=== PATIENT | female | born 1970 | race Caucasian/White ===

== ENCOUNTER 2020-12-14 10:15 | Emergency (ER) | payer OTHER, SELFPAY ==
[2020-12-14 10:22] VITALS: BP 193/121; PULSE 108; RESP 20; TEMP 36.9; O2SAT 99
--- NOTE | 2020-12-14 10:22 | ED.URI ---
HPI - URI/Sore Throat General Chief Complaint: Upper Respiratory Infection Stated Complaint: sore throat fever nausea Time Seen by Provider: 12/14/20 10:22 Source: patient and RN notes reviewed History of Present Illness HPI Narrative: Patient is a 50-year-old female who presents the urgent care with complaints of sore throat, nausea, vomiting, fever. Patient states that she is had symptoms since Monday and has now vomited once yesterday and today. Patient states that she has been taking TheraFlu and Pepto-Bismol for her symptoms. Denies any known exposure to strep, influenza or Covid. Patient also reports of intermittent headaches. States that she is supposed to be taking blood pressure medicine but her blood pressure has been normal and therefore she stopped taking her 2 medications, propranolol and lisinopril . Patient currently denies of any blurry vision or chest pain. No other acute complaints. No acute distress noted. Patient aware of the plan of care. Some parts of this dictation were generated by voice recognition software and may contain typographical and/or grammatical inaccuracies. Related Data Home Medications Medication Instructions Recorded Confirmed No Home Medications 12/14/20 12/14/20 Allergies Allergy/AdvReac Type Severity Reaction Status Date / Time No Known Allergies Allergy Unknown Unverified 12/14/20 10:28 Review of Systems Review of Systems: Narrative: CONSTITUTIONAL: Reports a fever EYES: Denies visual changes, redness, or discharge. ENT: Reports of sore throat and bilateral otalgia CARDIOVASCULAR: Denies chest pain, palpitations, or edema. RESPIRATORY: Denies cough or dyspnea. GASTROINTESTINAL: Reports of intermittent nausea and 2 episodes of vomiting without abdominal pain or diarrhea GENITOURINARY: Denies dysuria or hematuria. SKIN: Denies rash or itching. MUSCULOSKELETAL: Denies back pain, joint pain. Reports of body aches NEUROLOGIC: Reports of intermittent headaches All other systems reviewed are negative, except as documented in HPI. PMFSH Social History Social History Gender identity (if verbalized by the patient): Female Comments At the time of my signature, I reviewed and agree with the nursing past medical, surgical, social, and family history. There is no relevant family history pertinent to the patient complaint. Exam Narrative: Exam Narrative: GENERAL: This is a well-nourished, well-developed patient, in no apparent distress. HEAD: normocephalic, atraumatic. EYES: PERRL. Sclera clear/white. Vision is grossly intact. EARS: External ears normal, auditory canals clear and without drainage, TMs normal without perforation. Hearing grossly intact. NOSE: External nose normal with no obvious nasal discharge, nares without redness, no rhinorrhea. THROAT: Mucous membranes moist, mild erythema noted to posterior oropharynx with mild bilateral tonsillar edema/erythema without exudate. Moderate postnasal drainage. NECK: Neck supple, non-tender without lymphadenopathy CARDIOVASCULAR: Regular rate and rhythm without murmurs, gallops, or rubs. RESPIRATORY: Clear to auscultation. Breath sounds equal bilaterally. No wheezes, rales, or rhonchi. GASTROINTESTINAL: Abdomen soft, non-tender, nondistended. Bowel sounds are active. SKIN: warm, intact with no suspicious lesions or rash, good texture and turgor. NEURO: awake, alert, and oriented to person, place and time. There were no obvious focal neurologic abnormalities. EXTREMITIES: No clubbing, cyanosis, or edema. Course Vital Signs Vital signs: Vital Signs Temperature 98.4 F 12/14/20 10:22 Pulse Rate 108 H 12/14/20 10:22 Respiratory Rate 20 12/14/20 10:22 Blood Pressure 193/121 H 12/14/20 10:22 Pulse Oximetry 99 12/14/20 10:22 Temperature 98.4 F 12/14/20 10:22 Pulse Rate 108 H 12/14/20 10:22 Respiratory Rate 20 12/14/20 10:22 Blood Pressure 193/121 H 12/14/20 10:22 Pulse Oximetry 99 12/14/20 10:22
== END 2020-12-14 10:54 | disposition home or self-care (01) ==
PROVIDERS: Emergency Provider Nurse Practitioner Family; PCP Physician Assistant Medical
DX: U07.1 COVID-19 (principal); I10 Essential (primary) hypertension
CPT/HCPCS: 87081; 87426; 87880; 99213; C9803; G0463

== ENCOUNTER 2021-06-11 10:08 | Emergency (ER) | payer SELFPAY ==
[2021-06-11 10:16] VITALS: BP 280/140; PULSE 101; RESP 18; TEMP 36.6; O2SAT 100
[2021-06-11 10:18] VITALS: BP 224/152
--- NOTE | 2021-06-11 10:54 | PC.NURSE ---
EM[facility] arrived to [facility], pt refused transport via EMS, pt evaluated and monitored EMS crew, pt informed of the risk of transfer by private car. Pt A&Ox3, reports understanding of risks, pt son arrived to drive pt to [facility] ER. 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
--- NOTE | 2021-06-11 14:56 | ED.GENADULT ---
HPI - General Adult General Chief complaint: Headache Stated complaint: headache fatigue and seeing blackspots Time Seen by Provider: 06/11/21 10:18 Source: patient and RN notes reviewed Mode of arrival: ambulatory Limitations: no limitations History of Present Illness HPI narrative: Patient presents today complaining of a 3-day history of headache with dizziness that started yesterday that has since resolved. She reports severe fatigue since yesterday and reports that she slept all day yesterday. 1 hour prior to arrival she states black dots in her vision. Denies lightheadedness, photophobia, nausea or vomiting, neck pain, numbness or tingling in the extremities, weakness. MD complaint: Headache Related Data Home Medications Medication Instructions Recorded Confirmed lisinopril 06/11/21 Allergies Allergy/AdvReac Type Severity Reaction Status Date / Time sumatriptan [From Imitrex] Allergy Unknown Verified 06/11/21 10:28 Review of Systems Review of Systems: CONSTITUTIONAL: Denies body aches, fever, chills, or sweats.+ Fatigue EYES: Denies visual changes, redness, or discharge.+ Spots in vision ENT: Denies rhinorrhea, congestion, sore throat, or otalgia. CARDIOVASCULAR: Denies chest pain, palpitations, or edema. RESPIRATORY: Denies cough or dyspnea. GASTROINTESTINAL: Denies abdominal pain, nausea, vomiting, or diarrhea. GENITOURINARY: Denies dysuria or hematuria. SKIN: Denies rash, itching, or wounds. MUSCULOSKELETAL: Denies back pain, joint pain, or myalgia. NEUROLOGIC: Denies numbness, tingling, or weakness.+ Headache PSYCH: Denies depression or anxiety. PMFSH Past Medical History Medical History (Updated 06/11/21 @ 15:02 by Emerita Viera, WESLEY, ) Hypertension Social History Social History Gender identity (if verbalized by the patient): Female Comments At time of signature, I have reviewed and agree with nursing past medical, surgical, social and family history unless otherwise noted. Please see nursing chart for further information. There is no relevant family history pertinent to the presenting complaint Exam Narrative: GENERAL: Well-appearing, well-nourished, and in no acute distress. HEAD: Normocephalic, atraumatic. EYES: EOMI. PERRL. No redness or drainage. Conjunctivae normal. ENT: Mucous membranes pink and moist. NECK: Normal AROM. Supple. No lymphadenopathy. CHEST: No respiratory distress. Clear to auscultation. HEART: Regular rate and rhythm. No murmur appreciated. Normal peripheral pulses. EXTREMITIES: Normal range of motion. No edema. Strength normal bilaterally in all extremities. SKIN: Warm, dry, no rash. Capillary refill normal. Normal skin turgor. NEURO: No focal deficits. Alert and oriented x3. Gait steady. PSYCH: Normal affect. No signs of depression or anxiety. Course Course Emergency Course: EMS called after elevated blood pressure. By the time they arrived, patient has declined EMS transfer and wants to be transferred via private vehicle to [facility] ER. Patient was evaluated by EMS after arrival. She continued to decline their transfer. She signed AMA paperwork that she would not consent to EMS transfer. Vital Signs Vital signs: Vital Signs Temperature 97.9 F 06/11/21 10:16 Pulse Rate 101 H 06/11/21 10:16 Respiratory Rate 18 06/11/21 10:16 Blood Pressure 280/140 H 06/11/21 10:16 Pulse Oximetry 100 06/11/21 10:16 Temperature 97.9 F 06/11/21 10:16 Pulse Rate 101 H 06/11/21 10:16 Respiratory Rate 18 06/11/21 10:16 Blood Pressure 224/152 H 06/11/21 10:18 Pulse Oximetry 100 06/11/21 10:16 Transfer Transfered to: [facility] ([place]) Transportation: Other (Private vehicle) Transfer rationale: Elevated blood pressure, headache Accepting physician: Luis Medical Decision Making Differential Diagnosis Differential Diagnosis: Migraine, TIA, CVA, hyperte
== END 2021-06-11 11:01 | disposition short-term general hospital (02) ==
PROVIDERS: Emergency Provider Nurse Practitioner; PCP Physician Assistant Medical
DX: I10 Essential (primary) hypertension (principal); R51.9 Headache, unspecified
CPT/HCPCS: 99212; G0463

== ENCOUNTER 2022-07-04 10:57 | Emergency (ER) | payer OTHER, SELFPAY ==
[2022-07-04 11:00] VITALS: BP 192/93; PULSE 90; RESP 20; TEMP 36.7; O2SAT 99
--- NOTE | 2022-07-04 11:12 | ED.URI ---
HPI - URI/Sore Throat General Chief Complaint: Upper Respiratory Infection Stated Complaint: sore throat fatigue fever Time Seen by Provider: 07/04/22 11:20 Source: patient and RN notes reviewed Mode of arrival: ambulatory Limitations: no limitations History of Present Illness HPI Narrative: 52-year-old female presents concern for cough, sore throat, hoarse voice, feeling feverish with sweats overnight. She denies taking any medications at home her symptoms. 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 ENT: Reports rhinorrhea, congestion, sinus pain, otalgia and sore throat. CARDIOVASCULAR: Denies chest pain, palpitations, or edema. RESPIRATORY: Reports cough. Denies dyspnea. GASTROINTESTINAL: Denies abdominal pain, nausea, vomiting, diarrhea SKIN: Denies rash or itching. MUSCULOSKELETAL: Reports myalgia. NEUROLOGIC: Denies headache. All systems reviewed & are unremarkable except as noted in HPI and below PMFSH Past Medical History Medical History (Updated 07/04/22 @ 11:38 by Nani Dailey NP) Hypertension Social History Social History Gender identity (if verbalized by the patient): Female Comments At time of signature, agree with nursing past medical, surgical, social and family history. There is no relevant family history pertinent to the presenting complaint Exam Narrative: GENERAL: Nontoxic-appearing and in no acute distress. HEAD: Normocephalic EYES: PERRLA, conjunctivae clear ENT: Nares clear, turbinates edematous and erythematous, clear discharge. Mucous membranes moist. TM pearly hoffmann with dull light reflex bilaterally; no tragal tenderness. Oropharynx erythematous without lesions. Tonsils enlarged and without exudate, no drooling, no hoarseness, no trismus, uvula midline. NECK: Supple. No lymphadenopathy CHEST: Clear to auscultation, breath sounds equal. No wheezing, rhonchi, rales, or stridor. No respiratory distress, speaks in full sentences. HEART: Regular rate and rhythm. No murmur heard. SKIN: Warm, dry, no rash. NEURO: Alert and oriented x3. PSYCH: Normal mood and affect Course Course Emergency Course: Patient is aware of diagnosis, understands and agrees to treatment plan. Anticipatory guidance given. Patient agrees to follow-up as directed and is aware of reasons to seek care at the emergency department. Portions of this record may have been created with voice recognition software Level of Care: [facility] Visit Vital Signs Vital signs: Vital Signs Temperature 98.0 F 07/04/22 11:00 Pulse Rate 90 07/04/22 11:00 Respiratory Rate 20 07/04/22 11:00 Blood Pressure 192/93 H 07/04/22 11:00 Pulse Oximetry 99 07/04/22 11:00 Oxygen Delivery Room Air 07/04/22 11:00 Temperature 98.0 F 07/04/22 11:00 Pulse Rate 90 07/04/22 11:00 Respiratory Rate 20 07/04/22 11:00 Blood Pressure 192/93 H 07/04/22 11:00 Pulse Oximetry 99 07/04/22 11:00 Oxygen Delivery Room Air 07/04/22 11:00 Reviewed. MDM - URI/Sore Throat MDM Narrative Medical decision making narrative: Differential diagnosis considered: Diez virus, strep pharyngitis, allergic rhinitis, upper respiratory tract infection, sinusitis, rhinosinusitis, nasopharyngitis. viral pharyngitis, otitis media, otitis externa, pneumonia, bronchitis, viral cough syndrome, viral syndrome, and influenza. Exam findings show no acute concerns or changes; patient is non-toxic appearing and is in no distress. Patient is appr
== END 2022-07-04 11:45 | disposition home or self-care (01) ==
PROVIDERS: Emergency Provider Nurse Practitioner; PCP Internal Medicine
DX: J11.1 Influenza due to unidentified influenza virus with other respiratory manifestations (principal); Z20.822 Contact with and (suspected) exposure to COVID-19; I10 Essential (primary) hypertension
CPT/HCPCS: 87081; 87426; 87804; 99213; C9803; G0463